=== PATIENT | female | born 1995 | race African-American/Black ===

== ENCOUNTER 2016-09-03 10:42 | Inpatient (IN) | payer MEDICAID ==
[~2016-09-03] VITALS: Ht 149.9 cm; Wt 47.4 kg
[2016-09-03] MEDS ORDERED: HALOPERIDOL LACTATE 5 MG/ML VIAL IM ONE (15:15)
[2016-09-03] MEDS ORDERED: LORazepam 2 MG/ML VIAL IM ONE (15:15)
[2016-09-03] MEDS ORDERED: DiphenhydrAMINE HCL 50 MG/ML VIAL IM ONE (15:15)
[2016-09-03 16:12] LABS: BASOPHILS % (AUTO) 0.3 % (0.0-2.0); EOSINOPHILS % (AUTO) 0.6 % (1.0-6.0); HEMATOCRIT 35.3 % (36-46); HEMOGLOBIN 11.2 g/dL (12.0-16.0); LYMPHOCYTES # (AUTO) 1.8 K/uL (1.0-4.8); LYMPHOCYTES % (AUTO) 17.2 % (22.0-44.0); MEAN CORPUSCULAR HEMOGLOBIN 25.4 pg (26.0-34.0); MEAN CORPUSCULAR HGB CONC 31.7 G/dL (31.0-37.0); MEAN CORPUSCULAR VOLUME 80 fL (80-100); MONOCYTES # (AUTO) 0.8 K/uL (0.1-1.0); MONOCYTES % (AUTO) 7.3 % (2.0-9.0); NEUTROPHILS # (AUTO) 7.6 K/uL (1.8-7.7); NEUTROPHILS % (AUTO) 74.6 % (40.0-70.0); PLATELET COUNT (AUTO) 435 K/uL (150-450); RED CELL DISTRIBUTION WIDTH 17.5 % (11.5-14.5); WHITE BLOOD COUNT (AUTO) 10.2 K/uL (4.5-11.0)
[2016-09-03 16:41] LABS: ANION GAP 14 mmol/L (8-16); CARBON DIOXIDE 24 mmol/L (22-29); CHLORIDE 101 mmol/L (98-107); CREATININE 0.75 mg/dL (0.60-1.30); GLOMERULAR FILTR. RATE CALC > 60 mL/min (>60); SODIUM SERUM 139 mmol/L (136-145); UREA NITROGEN, BLOOD 9 mg/dL (7-18)
[2016-09-03 16:47] LABS: ALANINE AMINOTRANSFERASE 28 U/L (12-78); ALBUMIN 3.9 g/dL (3.4-5.0); ASPARTATE AMINOTRANSFERASE 14 U/L (15-37); BILIRUBIN,TOTAL 0.5 mg/dL (0.1-1.0); TOTAL PROTEIN, SERUM 7.1 g/dL (6.4-8.2)
[2016-09-03 17:07] LABS: RBC MORPHOLOGY COMMENT ABNORMAL RBC MORPH
[2016-09-03 17:48] VITALS: BP 101/69
[2016-09-04 04:28] VITALS: BP 108/70
[2016-09-04 08:11] VITALS: BP 108/69
[2016-09-04 09:06] LABS: CHOL/HDL RATIO 2.8 (3.9-5.7)
[2016-09-04] MEDS ORDERED: ONDANSETRON HCL 4 MG TABLET PO PRN (09:30)
[2016-09-04] MEDS ORDERED: POTASSIUM CHLORIDE 20 MEQ ER TABLET PO ONE (09:30)
[2016-09-04] MEDS ORDERED: PETROLATUM,WHITE 71 GM JELLY TP PRN (09:30)
[2016-09-04] MEDS ORDERED: CloNIDine HCL 0.1 MG TABLET PO PRN (09:30)
[2016-09-04] MEDS ORDERED: MAGNESIUM HYDROXIDE SUSPENSION 30 ML UDCUP PO PRN (09:30)
[2016-09-04] MEDS ORDERED: ACETAMINOPHEN 325 MG TABLET PO PRN (09:30)
[2016-09-04] MEDS ORDERED: ALBUTEROL SULFATE HFA 90 MCG/PUFF 8 GM INHALER IH PRN (09:30)
[2016-09-04] MEDS ORDERED: BACITRACIN 28.4 GM OINTMENT TP PRN (09:30)
[2016-09-04] MEDS ORDERED: MAG HYDROX/AL HYDROX/SIMETH ES 30 ML SUSPENSION UDCUP PO PRN (09:30)
[2016-09-04] MEDS ORDERED: LOPERAMIDE HCL 2 MG CAPSULE PO PRN (09:30)
[2016-09-04] MEDS: RisperiDONE 1 MG TABLET PO SCH ×2 (11:31→16:55)
[2016-09-04 17:25] VITALS: BP 127/78
[2016-09-04] MEDS: LORazepam 2 MG TABLET PO PRN (17:42)
[2016-09-04] MEDS: ZOLPIDEM TARTRATE 10 MG TABLET PO PRN (20:41)
[2016-09-04 21:06] VITALS: BP 100/65
[2016-09-05] MEDS: LORazepam 2 MG TABLET PO PRN ×2 (05:30→14:24)
[2016-09-05 06:26] VITALS: BP 113/73
[2016-09-05] MEDS: HALOPERIDOL 5 MG TABLET PO PRN (08:00)
[2016-09-05 08:34] VITALS: BP 139/97
[2016-09-05 10:41] LABS: GLUCOSE,POINT OF CARE 100 MG/DL (70-110)
[2016-09-05 13:01] VITALS: BP 136/89
[2016-09-05] MEDS: POTASSIUM CHLORIDE 20 MEQ ER TABLET PO ONE ×2 (14:01→14:08)
[2016-09-05 14:02] VITALS: BP 143/100
[2016-09-05 15:09] VITALS: BP 131/95
[2016-09-05] MEDS: ATENOLOL 25 MG TABLET PO SCH (15:58)
[2016-09-05 16:08] VITALS: BP 131/95
[2016-09-05] MEDS: OLANZapine 7.5 MG TABLET PO SCH (20:15)
[2016-09-05] MEDS: ZOLPIDEM TARTRATE 10 MG TABLET PO PRN (20:51)
[2016-09-06 00:02] VITALS: BP 134/90
[2016-09-06] MEDS: LORazepam 2 MG TABLET PO PRN ×2 (00:11→14:37)
[2016-09-06] MEDS: BENZOCAINE/MENTHOL LOZENGE MM PRN (05:19)
[2016-09-06] MEDS: ATENOLOL 25 MG TABLET PO SCH (08:09)
[2016-09-06 08:20] VITALS: BP 119/78
[2016-09-06] MEDS: HALOPERIDOL 5 MG TABLET PO PRN (14:37)
[2016-09-06 16:15] VITALS: BP 110/76
[2016-09-06] MEDS: OLANZapine 7.5 MG TABLET PO SCH (20:07)
[2016-09-06] MEDS: ZOLPIDEM TARTRATE 10 MG TABLET PO PRN (21:57)
[2016-09-07 00:11] VITALS: BP 100/63
[2016-09-07 04:00] VITALS: BP 120/75
[2016-09-07] MEDS: LORazepam 2 MG TABLET PO PRN ×3 (04:41→16:03)
[2016-09-07] MEDS: ATENOLOL 25 MG TABLET PO SCH (08:35)
[2016-09-07 09:08] VITALS: BP 135/85
[2016-09-07] MEDS: HALOPERIDOL 5 MG TABLET PO PRN ×2 (11:01→16:24)
[2016-09-07 16:21] VITALS: BP 124/82
[2016-09-07] MEDS: OLANZapine 7.5 MG TABLET PO SCH (20:03)
[2016-09-07] MEDS: ZOLPIDEM TARTRATE 10 MG TABLET PO PRN (21:04)
[2016-09-08] MEDS: LORazepam 2 MG TABLET PO PRN ×3 (00:07→13:20)
[2016-09-08 01:21] VITALS: BP 124/90
[2016-09-08] MEDS: ATENOLOL 25 MG TABLET PO SCH (08:12)
[2016-09-08] MEDS: HALOPERIDOL 5 MG TABLET PO PRN ×2 (08:13→16:03)
[2016-09-08 16:00] VITALS: BP 125/75
[2016-09-08] MEDS: OLANZapine 7.5 MG TABLET PO SCH (20:08)
[2016-09-08] MEDS: ZOLPIDEM TARTRATE 10 MG TABLET PO PRN (21:05)
[2016-09-09 06:14] VITALS: BP 118/87
[2016-09-09] MEDS: LORazepam 2 MG TABLET PO PRN ×4 (06:23→21:39)
[2016-09-09] MEDS: HALOPERIDOL 5 MG TABLET PO PRN ×3 (08:26→22:31)
[2016-09-09] MEDS: ATENOLOL 25 MG TABLET PO SCH (08:26)
[2016-09-09 09:00] VITALS: BP 117/75
[2016-09-09 16:04] VITALS: BP_SYST 128; BP_SYST 132; BP_DIAS 78; BP_DIAS 84
[2016-09-09] MEDS: OLANZapine 7.5 MG TABLET PO SCH (20:15)
[2016-09-09] MEDS: ZOLPIDEM TARTRATE 10 MG TABLET PO PRN (21:05)
[2016-09-09 21:35] VITALS: BP 110/69
[2016-09-10 03:38] VITALS: BP 117/69
[2016-09-10 08:10] VITALS: BP 110/66
[2016-09-10] MEDS: ATENOLOL 25 MG TABLET PO SCH (08:16)
[2016-09-10] MEDS: HALOPERIDOL 5 MG TABLET PO PRN ×3 (09:43→19:01)
[2016-09-10] MEDS: LORazepam 2 MG TABLET PO PRN ×2 (10:39→16:00)
[2016-09-10 16:14] VITALS: BP 122/82
[2016-09-10] MEDS: OLANZapine 7.5 MG TABLET PO SCH (20:09)
[2016-09-10] MEDS: ZOLPIDEM TARTRATE 10 MG TABLET PO PRN (21:01)
[2016-09-11] MEDS: ATENOLOL 25 MG TABLET PO SCH (08:22)
[2016-09-11 08:34] VITALS: BP 124/77
[2016-09-11] MEDS: HALOPERIDOL 5 MG TABLET PO PRN ×2 (09:03→14:03)
[2016-09-11 10:26] VITALS: BP 118/64
[2016-09-11] MEDS: IBUPROFEN 600 MG TABLET PO PRN (10:26)
[2016-09-11 16:19] VITALS: BP 112/64
[2016-09-11] MEDS: LORazepam 2 MG TABLET PO PRN (16:22)
[2016-09-11] MEDS: OLANZapine 7.5 MG TABLET PO SCH (20:39)
[2016-09-11] MEDS: ZOLPIDEM TARTRATE 10 MG TABLET PO PRN (21:04)
[2016-09-12] MEDS: BENZOCAINE/MENTHOL LOZENGE MM PRN (00:41)
[2016-09-12 01:25] VITALS: BP 119/74
[2016-09-12] MEDS: HALOPERIDOL 5 MG TABLET PO PRN ×4 (01:28→17:17)
[2016-09-12] MEDS: LORazepam 2 MG TABLET PO PRN ×4 (01:28→17:17)
[2016-09-12] MEDS: ATENOLOL 25 MG TABLET PO SCH (08:08)
[2016-09-12 08:54] VITALS: BP 109/80
[2016-09-12 16:30] VITALS: BP 111/68
[2016-09-12] MEDS: OLANZapine 7.5 MG TABLET PO SCH (20:21)
[2016-09-12] MEDS: ZOLPIDEM TARTRATE 10 MG TABLET PO PRN (21:03)
[2016-09-13 00:06] VITALS: BP 119/73
[2016-09-13] MEDS: HALOPERIDOL 5 MG TABLET PO PRN ×3 (07:20→16:41)
[2016-09-13] MEDS: LORazepam 2 MG TABLET PO PRN ×3 (07:20→16:40)
[2016-09-13] MEDS: ATENOLOL 25 MG TABLET PO SCH (08:44)
[2016-09-13 09:53] VITALS: BP 128/77
[2016-09-13 16:00] VITALS: BP 104/75
[2016-09-13] MEDS: OLANZapine 7.5 MG TABLET PO SCH (20:50)
[2016-09-13] MEDS: ZOLPIDEM TARTRATE 10 MG TABLET PO PRN (21:31)
[2016-09-14 04:00] VITALS: BP 108/88
[2016-09-14 06:15] VITALS: BP 115/72
[2016-09-14] MEDS: HALOPERIDOL 5 MG TABLET PO PRN ×4 (06:18→21:23)
[2016-09-14] MEDS: LORazepam 2 MG TABLET PO PRN ×4 (06:18→21:23)
[2016-09-14] MEDS: ATENOLOL 25 MG TABLET PO SCH (09:04)
[2016-09-14 09:35] VITALS: BP 110/65
[2016-09-14 18:06] VITALS: BP 101/75
[2016-09-14] MEDS: IBUPROFEN 600 MG TABLET PO PRN (18:10)
[2016-09-14] MEDS: OLANZapine 7.5 MG TABLET PO SCH (20:52)
[2016-09-14] MEDS: ZOLPIDEM TARTRATE 10 MG TABLET PO PRN (21:18)
[2016-09-15] MEDS: HALOPERIDOL 5 MG TABLET PO PRN ×2 (06:24→12:25)
[2016-09-15] MEDS: LORazepam 2 MG TABLET PO PRN ×3 (06:24→20:11)
[2016-09-15 08:22] VITALS: BP 110/86
[2016-09-15] MEDS: ATENOLOL 25 MG TABLET PO SCH (08:32)
[2016-09-15] MEDS: IBUPROFEN 600 MG TABLET PO PRN (08:56)
[2016-09-15 16:00] VITALS: BP 120/78
[2016-09-15] MEDS: OLANZapine 7.5 MG TABLET PO SCH (20:11)
[2016-09-15] MEDS: ZOLPIDEM TARTRATE 10 MG TABLET PO PRN (21:09)
[2016-09-16 05:43] VITALS: BP 112/80
[2016-09-16] MEDS: LORazepam 2 MG TABLET PO PRN ×4 (05:44→20:15)
[2016-09-16] MEDS: HALOPERIDOL 5 MG TABLET PO PRN ×4 (06:57→20:15)
[2016-09-16] MEDS: ATENOLOL 25 MG TABLET PO SCH (08:21)
[2016-09-16 08:50] VITALS: BP 110/66
[2016-09-16 16:30] VITALS: BP 112/77
[2016-09-16] MEDS: OLANZapine 7.5 MG TABLET PO SCH (20:04)
[2016-09-16] MEDS ORDERED: OLAN7.5T2 PO (20:16)
[2016-09-16] MEDS ORDERED: ATEN25 PO (20:19)
== END 2016-09-16 21:15 | disposition home or self-care (01) | DRG 750 ==
LOC: EDUNIT# 10:42 → EMS 10:46 → B2S 16:28 → B3A 09-07 11:17
PROVIDERS: ADMIT Psychiatry & Neurology Psychiatry; ATTEND Psychiatry & Neurology Psychiatry
PROC: GZHZZZZ Group Psychotherapy (ICD-10-PCS; principal; 2016-09-04)
DX: F25.1 Schizoaffective disorder, depressive type (principal); F22 Delusional disorders; E87.6 Hypokalemia; F17.200 Nicotine dependence, unspecified, uncomplicated; G47.00 Insomnia, unspecified; M54.5 Low back pain; R00.0 Tachycardia, unspecified; R51 Headache; R53.83 Other fatigue; F12.90 Cannabis use, unspecified, uncomplicated; Z90.49 Acquired absence of other specified parts of digestive tract; Z91.011 Allergy to milk products; Z56.0 Unemployment, unspecified; Z71.6 Tobacco abuse counseling; Z71.51 Drug abuse counseling and surveillance of drug abuser; Z72.89 Other problems related to lifestyle; Z71.41 Alcohol abuse counseling and surveillance of alcoholic; Z53.29 Procedure and treatment not carried out because of patient's decision for other reasons; Z79.899 Other long term (current) drug therapy
CPT/HCPCS: 82962; 84132; 84443; 96372; 99285; G0480; J1200; J1630; J2060; J3535

== ENCOUNTER 2016-09-20 04:04 | Inpatient (IN) | payer MEDICAID ==
[~2016-09-20] VITALS: Ht 149.9 cm; Wt 48.5 kg
[~2016-09-20 04:04] MED LIST: ATEN25 PO; OLAN7.5T2 PO
[2016-09-20] MEDS ORDERED: LORazepam 2 MG TABLET PO ONE (05:15)
[2016-09-20] MEDS ORDERED: DiphenhydrAMINE HCL 25 MG CAPSULE PO ONE (05:15)
[2016-09-20] MEDS ORDERED: HALOPERIDOL 5 MG TABLET PO ONE (05:15)
[2016-09-20 05:17] LABS: BASOPHILS % (AUTO) 0.9 % (0.0-2.0); EOSINOPHILS # (AUTO) 0.04 K/uL (0.00-0.70); EOSINOPHILS % (AUTO) 0.33 % (1.0-6.0); HEMATOCRIT 35.8 % (36-46); HEMOGLOBIN 11.5 g/dL (12.0-16.0); LYMPHOCYTES # (AUTO) 1.3 K/uL (1.0-4.8); LYMPHOCYTES % (AUTO) 11.9 % (22.0-44.0); MEAN CORPUSCULAR HEMOGLOBIN 25.9 pg (26.0-34.0); MEAN CORPUSCULAR HGB CONC 32.2 G/dL (31.0-37.0); MEAN CORPUSCULAR VOLUME 80 fL (80-100); MONOCYTES # (AUTO) 0.7 K/uL (0.1-1.0); MONOCYTES % (AUTO) 6.6 % (2.0-9.0); NEUTROPHILS # (AUTO) 8.9 K/uL (1.8-7.7); NEUTROPHILS % (AUTO) 80.3 % (40.0-70.0); PLATELET COUNT (AUTO) 442 K/uL (150-450); RED BLOOD CELL COUNT(AUTO) 4.45 MIL/uL (4.00-5.20)
[2016-09-20 05:24] LABS: ANION GAP 10 mmol/L (8-16); CALCIUM, TOTAL 8.8 mg/dL (8.8-10.5); CARBON DIOXIDE 28 mmol/L (22-29); CHLORIDE 100 mmol/L (98-107); CREATININE 0.73 mg/dL (0.60-1.30); GLOMERULAR FILTR. RATE CALC > 60 mL/min (>60); POTASSIUM 3.6 mmol/L (3.5-5.1); SODIUM SERUM 138 mmol/L (136-145); UREA NITROGEN, BLOOD 10 mg/dL (7-18)
[2016-09-20 05:30] LABS: ALANINE AMINOTRANSFERASE 42 U/L (12-78); ASPARTATE AMINOTRANSFERASE 26 U/L (15-37); BILIRUBIN,TOTAL 0.3 mg/dL (0.1-1.0); TOTAL PROTEIN, SERUM 7.6 g/dL (6.4-8.2)
[2016-09-20] MEDS ORDERED: ACETAMINOPHEN 325 MG TABLET PO PRN (08:00)
[2016-09-20] MEDS ORDERED: MAG HYDROX/AL HYDROX/SIMETH ES 30 ML SUSPENSION UDCUP PO PRN (08:00)
[2016-09-20] MEDS ORDERED: CloNIDine HCL 0.1 MG TABLET PO PRN (08:00)
[2016-09-20] MEDS ORDERED: BACITRACIN 28.4 GM OINTMENT TP PRN (08:00)
[2016-09-20] MEDS ORDERED: MAGNESIUM HYDROXIDE SUSPENSION 30 ML UDCUP PO PRN (08:00)
[2016-09-20] MEDS ORDERED: ALBUTEROL SULFATE HFA 90 MCG/PUFF 8 GM INHALER IH PRN (08:00)
[2016-09-20] MEDS ORDERED: LOPERAMIDE HCL 2 MG CAPSULE PO PRN (08:00)
[2016-09-20] MEDS ORDERED: PETROLATUM,WHITE 71 GM JELLY TP PRN (08:00)
[2016-09-20] MEDS ORDERED: ONDANSETRON HCL 4 MG TABLET PO PRN (08:00)
[2016-09-20] MEDS ORDERED: BENZOCAINE/MENTHOL LOZENGE MM PRN (08:00)
[2016-09-20 08:05] VITALS: BP 103/57
[2016-09-20] MEDS: HALOPERIDOL 5 MG TABLET PO PRN (13:41)
[2016-09-20] MEDS: LORazepam 2 MG TABLET PO PRN (13:43)
[2016-09-21] MEDS: ZOLPIDEM TARTRATE 10 MG TABLET PO PRN (00:45)
[2016-09-21 00:46] VITALS: BP 123/90
[2016-09-21] MEDS: LORazepam 2 MG TABLET PO PRN ×3 (08:12→17:29)
[2016-09-21] MEDS: HALOPERIDOL 5 MG TABLET PO PRN ×3 (08:49→17:29)
[2016-09-21 09:07] VITALS: BP 124/87
[2016-09-21 16:00] VITALS: BP 125/85
[2016-09-21] MEDS: OLANZapine 7.5 MG TABLET PO SCH (20:54)
[2016-09-22] MEDS: LORazepam 2 MG TABLET PO PRN ×3 (04:59→14:21)
[2016-09-22] MEDS: HALOPERIDOL 5 MG TABLET PO PRN ×3 (04:59→14:21)
[2016-09-22 05:00] VITALS: BP 128/96
[2016-09-22 08:23] VITALS: BP 115/73
[2016-09-22] MEDS: IBUPROFEN 600 MG TABLET PO PRN (16:10)
[2016-09-22 16:49] VITALS: BP 122/78
[2016-09-22] MEDS: OLANZapine 7.5 MG TABLET PO SCH (21:02)
[2016-09-23 05:00] VITALS: BP 121/75
[2016-09-23 05:39] VITALS: BP 130/98
[2016-09-23] MEDS: LORazepam 2 MG TABLET PO PRN ×3 (05:47→17:30)
[2016-09-23] MEDS: HALOPERIDOL 5 MG TABLET PO PRN ×3 (05:47→17:29)
[2016-09-23 08:27] VITALS: BP 135/77
[2016-09-23] MEDS: IBUPROFEN 600 MG TABLET PO PRN ×2 (09:32→20:01)
[2016-09-23 17:29] VITALS: BP 118/84
[2016-09-23] MEDS: OLANZapine 7.5 MG TABLET PO SCH (21:11)
[2016-09-24 04:24] VITALS: BP 137/85
[2016-09-24] MEDS: LORazepam 2 MG TABLET PO PRN ×3 (04:28→16:15)
[2016-09-24] MEDS: IBUPROFEN 600 MG TABLET PO PRN (04:50)
[2016-09-24] MEDS: HALOPERIDOL 5 MG TABLET PO PRN ×3 (05:35→16:15)
[2016-09-24 08:37] VITALS: BP 122/79
[2016-09-24 16:00] VITALS: BP 130/85
[2016-09-24] MEDS: OLANZapine 7.5 MG TABLET PO SCH (20:40)
[2016-09-24] MEDS: ZOLPIDEM TARTRATE 10 MG TABLET PO PRN (20:41)
[2016-09-25 04:54] VITALS: BP 124/79
[2016-09-25] MEDS: LORazepam 2 MG TABLET PO PRN ×2 (04:55→08:30)
[2016-09-25] MEDS: HALOPERIDOL 5 MG TABLET PO PRN ×2 (04:55→08:30)
[2016-09-25] MEDS: IBUPROFEN 600 MG TABLET PO PRN (08:30)
[2016-09-25 08:51] VITALS: BP 124/76
[2016-09-25] MEDS ORDERED: OLAN7.5T2 PO (12:07)
== END 2016-09-25 13:53 | disposition home or self-care (01) | DRG 750 ==
LOC: EDUNIT# 04:04 → EMS 04:06 → B3A 06:37
PROVIDERS: ADMIT Psychiatry & Neurology Psychiatry; ATTEND Psychiatry & Neurology Psychiatry
DX: F20.0 Paranoid schizophrenia (principal); R45.851 Suicidal ideations; F17.200 Nicotine dependence, unspecified, uncomplicated; G47.00 Insomnia, unspecified; F12.90 Cannabis use, unspecified, uncomplicated; Z53.29 Procedure and treatment not carried out because of patient's decision for other reasons; J45.909 Unspecified asthma, uncomplicated; Z90.49 Acquired absence of other specified parts of digestive tract; Z71.6 Tobacco abuse counseling; Z91.011 Allergy to milk products; Z71.41 Alcohol abuse counseling and surveillance of alcoholic; Z71.51 Drug abuse counseling and surveillance of drug abuser; Z56.0 Unemployment, unspecified; Z72.89 Other problems related to lifestyle
CPT/HCPCS: 87081; 99285; G0480; J3535

== ENCOUNTER 2016-09-30 23:21 | Inpatient (IN) | payer MEDICAID ==
[~2016-09-30] VITALS: Ht 149.9 cm; Wt 51.0 kg
[~2016-09-30 23:21] MED LIST changes: -ATEN25 PO
[2016-10-01 03:54] LABS: BASOPHILS % (AUTO) 0.5 % (0.0-2.0); EOSINOPHILS % (AUTO) 2.9 % (1.0-6.0); HEMOGLOBIN 9.8 g/dL (12.0-16.0); LYMPHOCYTES # (AUTO) 2.3 K/uL (1.0-4.8); LYMPHOCYTES % (AUTO) 27.7 % (22.0-44.0); MEAN CORPUSCULAR HEMOGLOBIN 26.4 pg (26.0-34.0); MEAN CORPUSCULAR HGB CONC 32.9 G/dL (31.0-37.0); MEAN CORPUSCULAR VOLUME 80 fL (80-100); MONOCYTES # (AUTO) 0.6 K/uL (0.1-1.0); MONOCYTES % (AUTO) 6.8 % (2.0-9.0); NEUTROPHILS # (AUTO) 5.1 K/uL (1.8-7.7); NEUTROPHILS % (AUTO) 62.1 % (40.0-70.0); PLATELET COUNT (AUTO) 373 K/uL (150-450); RED BLOOD CELL COUNT(AUTO) 3.73 MIL/uL (4.00-5.20); RED CELL DISTRIBUTION WIDTH 18.3 % (11.5-14.5); WHITE BLOOD COUNT (AUTO) 8.2 K/uL (4.5-11.0)
[2016-10-01 04:11] LABS: ALANINE AMINOTRANSFERASE 41 U/L (12-78); ALBUMIN 3.3 g/dL (3.4-5.0); ANION GAP 7 mmol/L (8-16); ASPARTATE AMINOTRANSFERASE 15 U/L (15-37); BILIRUBIN,TOTAL 0.2 mg/dL (0.1-1.0); CALCIUM, TOTAL 8.6 mg/dL (8.8-10.5); CARBON DIOXIDE 28 mmol/L (22-29); CHLORIDE 105 mmol/L (98-107); CHOL/HDL RATIO 3.6 (3.9-5.7); CREATININE 0.65 mg/dL (0.60-1.30); GLOMERULAR FILTR. RATE CALC > 60 mL/min (>60); POTASSIUM 3.7 mmol/L (3.5-5.1); SODIUM SERUM 140 mmol/L (136-145); TOTAL PROTEIN, SERUM 6.6 g/dL (6.4-8.2)
[2016-10-01 04:17] LABS: UREA NITROGEN, BLOOD 12 mg/dL (7-18)
[2016-10-01 06:52] VITALS: BP 102/53
[2016-10-01] MEDS ORDERED: LOPERAMIDE HCL 2 MG CAPSULE PO PRN (09:00)
[2016-10-01] MEDS ORDERED: ALBUTEROL SULFATE HFA 90 MCG/PUFF 8 GM INHALER IH PRN ×2 (09:00→21:30)
[2016-10-01] MEDS ORDERED: MAG HYDROX/AL HYDROX/SIMETH ES 30 ML SUSPENSION UDCUP PO PRN (09:00)
[2016-10-01] MEDS ORDERED: PETROLATUM,WHITE 71 GM JELLY TP PRN (09:00)
[2016-10-01] MEDS ORDERED: CloNIDine HCL 0.1 MG TABLET PO PRN (09:00)
[2016-10-01] MEDS ORDERED: IBUPROFEN 600 MG TABLET PO PRN (09:00)
[2016-10-01] MEDS ORDERED: ONDANSETRON HCL 4 MG TABLET PO PRN (09:00)
[2016-10-01] MEDS ORDERED: BENZOCAINE/MENTHOL LOZENGE [8 LOZENGES/PACKET] MM PRN (09:00)
[2016-10-01] MEDS ORDERED: MAGNESIUM HYDROXIDE SUSPENSION 30 ML UDCUP PO PRN (09:00)
[2016-10-01] MEDS ORDERED: BACITRACIN 28.4 GM OINTMENT TP PRN (09:00)
[2016-10-01 16:16] VITALS: BP 115/68
[2016-10-01] MEDS: HALOPERIDOL 5 MG TABLET PO PRN (16:27)
[2016-10-01] MEDS: LORazepam 2 MG TABLET PO PRN (16:27)
[2016-10-01] MEDS ORDERED: PNEUMOCOCCAL VACCINE POLYVALENT 0.5 ML VIAL [PPSV23] IM ONE (17:15)
[2016-10-02 02:26] VITALS: BP 117/86
[2016-10-02] MEDS: ZOLPIDEM TARTRATE 10 MG TABLET PO PRN (02:29)
[2016-10-02] MEDS: HALOPERIDOL 5 MG TABLET PO PRN ×3 (08:18→19:14)
[2016-10-02] MEDS: LORazepam 2 MG TABLET PO PRN ×3 (08:18→19:14)
[2016-10-02 09:33] VITALS: BP 120/74
[2016-10-02 16:25] VITALS: BP 115/75
[2016-10-02] MEDS: OLANZapine 7.5 MG TABLET PO SCH (20:24)
[2016-10-03 02:04] VITALS: BP_SYST 105; BP_SYST 123; BP_DIAS 73; BP_DIAS 74
[2016-10-03] MEDS: LORazepam 2 MG TABLET PO PRN ×2 (02:18→06:38)
[2016-10-03 06:34] VITALS: BP 120/80
[2016-10-03 08:46] VITALS: BP 122/60
[2016-10-03] MEDS: HALOPERIDOL 5 MG TABLET PO PRN ×2 (08:47→17:20)
[2016-10-03 16:34] VITALS: BP 119/86
[2016-10-03] MEDS: OLANZapine 7.5 MG TABLET PO SCH (20:05)
[2016-10-03] MEDS: ZOLPIDEM TARTRATE 10 MG TABLET PO PRN (21:21)
[2016-10-04 05:45] VITALS: BP 125/81
[2016-10-04] MEDS: HALOPERIDOL 5 MG TABLET PO PRN ×2 (05:51→10:42)
[2016-10-04] MEDS: ATENOLOL 25 MG TABLET PO SCH (08:38)
[2016-10-04 09:00] VITALS: BP 117/77
[2016-10-04 16:30] VITALS: BP 120/68
[2016-10-04] MEDS: OLANZapine 7.5 MG TABLET PO SCH (20:03)
[2016-10-05 05:45] VITALS: BP 125/87
[2016-10-05] MEDS: HALOPERIDOL 5 MG TABLET PO PRN ×2 (08:46→12:48)
[2016-10-05] MEDS: ATENOLOL 25 MG TABLET PO SCH (08:46)
[2016-10-05 09:36] VITALS: BP 121/68
[2016-10-05] MEDS: ACETAMINOPHEN 325 MG TABLET PO PRN (10:34)
[2016-10-05 16:18] VITALS: BP 109/61
[2016-10-05] MEDS: OLANZapine 7.5 MG TABLET PO SCH (20:23)
[2016-10-06 00:14] VITALS: BP 104/61
[2016-10-06] MEDS: ATENOLOL 25 MG TABLET PO SCH (08:24)
[2016-10-06] MEDS: HALOPERIDOL 5 MG TABLET PO PRN ×2 (08:25→15:51)
[2016-10-06 08:56] VITALS: BP 122/68
[2016-10-06] MEDS: FLUoxetine HCL 20 MG CAPSULE PO SCH (12:36)
[2016-10-06 15:51] VITALS: BP 118/70
[2016-10-06] MEDS: ACETAMINOPHEN 325 MG TABLET PO PRN (15:51)
[2016-10-06 16:20] VITALS: BP 119/71
[2016-10-06] MEDS ORDERED: OLANZapine 10 MG TABLET PO SCH (21:00)
[2016-10-07 00:15] VITALS: BP 116/83
[2016-10-07] MEDS: HALOPERIDOL 5 MG TABLET PO PRN (08:33)
[2016-10-07] MEDS: FLUoxetine HCL 20 MG CAPSULE PO SCH (08:33)
[2016-10-07] MEDS: ATENOLOL 25 MG TABLET PO SCH (08:33)
[2016-10-07 08:57] VITALS: BP 126/76
[2016-10-07] MEDS ORDERED: FLUO-191 PO (13:51)
[2016-10-07] MEDS ORDERED: ATEN25 PO (13:51)
== END 2016-10-07 14:40 | disposition home or self-care (01) | DRG 750 ==
LOC: EMS 23:22 → UNDOADMIN 10-01 06:00 → AHU 10-01 06:00 → EMS 10-01 06:37 → B2S 10-01 15:55
PROVIDERS: ADMIT Psychiatry & Neurology Psychiatry; ATTEND Psychiatry & Neurology Psychiatry
DX: F20.0 Paranoid schizophrenia (principal); D64.9 Anemia, unspecified; J45.909 Unspecified asthma, uncomplicated; F12.90 Cannabis use, unspecified, uncomplicated; K59.00 Constipation, unspecified; G47.00 Insomnia, unspecified; R00.0 Tachycardia, unspecified; F17.200 Nicotine dependence, unspecified, uncomplicated; Z90.49 Acquired absence of other specified parts of digestive tract; Z71.51 Drug abuse counseling and surveillance of drug abuser; Z28.21 Immunization not carried out because of patient refusal; Z71.6 Tobacco abuse counseling; Z88.8 Allergy status to other drugs, medicaments and biological substances
CPT/HCPCS: 87081; 99285; G0480; J3535; Q0162

== ENCOUNTER 2018-08-02 21:28 | Inpatient (IN) | payer MEDICAID ==
[~2018-08-02] VITALS: Ht 149.9 cm; Wt 62.3 kg
[~2018-08-02 21:28] MED LIST changes: +ATEN25TA PO; +FLUO-191 PO
[2018-08-02 21:55] LABS: BASOPHILS % (AUTO) 0.7 % (0.0-2.0); EOSINOPHILS % (AUTO) 0.8 % (1.0-6.0); HEMATOCRIT 38.5 % (36-46); HEMOGLOBIN 12.7 g/dL (12.0-16.0); LYMPHOCYTES # (AUTO) 1.4 K/uL (1.0-4.8); LYMPHOCYTES % (AUTO) 11.2 % (22.0-44.0); MEAN CORPUSCULAR VOLUME 82 fL (80-100); MONOCYTES # (AUTO) 0.6 K/uL (0.1-1.0); MONOCYTES % (AUTO) 4.6 % (2.0-9.0); NEUTROPHILS # (AUTO) 10.2 K/uL (1.8-7.7); NEUTROPHILS % (AUTO) 82.7 % (40.0-70.0); PLATELET COUNT (AUTO) 370 K/uL (150-450); RED CELL DISTRIBUTION WIDTH 18.6 % (11.5-14.5)
[2018-08-02 22:05] LABS: ANION GAP 14 mmol/L (8-16); CALCIUM, TOTAL 8.8 mg/dL (8.8-10.5); CARBON DIOXIDE 25 mmol/L (22-29); CHLORIDE 99 mmol/L (98-107); CREATININE 0.88 mg/dL (0.60-1.30); GLOMERULAR FILTR. RATE CALC > 60 mL/min (>60); GLUCOSE,RANDOM 143 mg/dL (70-110); POTASSIUM 3.8 mmol/L (3.5-5.1); SODIUM SERUM 138 mmol/L (136-145); UREA NITROGEN, BLOOD 12 mg/dL (7-18)
[2018-08-02 22:11] LABS: ALANINE AMINOTRANSFERASE 19 U/L (12-78); ALBUMIN 3.6 g/dL (3.4-5.0); ALKALINE PHOSPHATASE 63 U/L (46-116); ASPARTATE AMINOTRANSFERASE 15 U/L (15-37); BILIRUBIN,TOTAL 0.1 mg/dL (0.1-1.0); TOTAL PROTEIN, SERUM 8.1 g/dL (6.4-8.2)
[2018-08-02 23:08] LABS: APPEARANCE,URINE CLOUDY (CLEAR); BILIRUBIN,URINE NEGATIVE (NEGATIVE); GLUCOSE, URINE (UA) NEGATIVE (NEGATIVE); KETONES,URINE NEGATIVE (NEGATIVE); LEUKOCYTE ESTERASE ,URINE NEGATIVE (NEGATIVE); NITRATE,URINE NEGATIVE (NEGATIVE); OCCULT BLOOD,URINE LARGE (NEGATIVE); PH,URINE 6.5 (5.0-8.0); PROTEIN,URINE NEGATIVE (NEGATIVE); UROBILINOGEN,URINE 0.2 mg/dL (<=1.0)
[2018-08-02 23:13] LABS: AMPHET/METH SCREEN,URINE NEGATIVE (NEGATIVE); BARBITURATE SCREEN, URINE NEGATIVE (NEGATIVE); BENZODIAZEPINES SCREEN,URINE NEGATIVE (NEGATIVE); CANNABINOID SCREEN,URINE POSITIVE (NEGATIVE); COCAINE SCREEN,URINE NEGATIVE (NEGATIVE); METHADONE SCREEN, URINE NEGATIVE (NEGATIVE); OPIATE SCREEN,URINE NEGATIVE (NEGATIVE); PHENCYCLIDINE SCREEN,URINE NEGATIVE (NEGATIVE)
[2018-08-02 23:27] LABS: HCG,QUANTITATIVE < 1 mIU/mL (0-6)
[2018-08-02 23:44] LABS: BACTERIA,URINE Rare /HPF (None Seen); SQUAMOUS EPITHELIAL CELL,UR Moderate /LPF (None Seen); WBC,URINE 0-2 /HPF (0-5)
[2018-08-02] MEDS ORDERED: QUEtiapine FUMARATE 100 MG TABLET PO PRN (23:45)
[2018-08-03 01:00] VITALS: BP 138/78
[2018-08-03] MEDS: ZOLPIDEM TARTRATE 10 MG TABLET PO PRN ×2 (01:07→20:58)
[2018-08-03] MEDS: LORazepam 2 MG TABLET PO PRN ×3 (01:07→17:38)
[2018-08-03] MEDS ORDERED: PNEUMOCOCCAL VACCINE POLYVALENT 0.5 ML VIAL [PPSV23] IM ONE (01:30)
[2018-08-03 08:20] VITALS: BP 120/84
[2018-08-03 09:10] LABS: CHOL/HDL RATIO 4.8 (3.9-5.7)
[2018-08-03] MEDS ORDERED: MAGNESIUM HYDROXIDE SUSPENSION 30 ML UDCUP PO PRN (12:30)
[2018-08-03] MEDS ORDERED: TUBERCULIN, PURIFIED PROTEIN DERIVATIVE 5 TU/0.1 ML SYRINGE ID ONE (12:30)
[2018-08-03] MEDS ORDERED: LOPERAMIDE HCL 2 MG CAPSULE PO PRN (12:30)
[2018-08-03] MEDS ORDERED: GuaiFENesin/D-METHORPHAN [SUGAR-FREE] 200-20MG/10 ML SYRUP UDCUP PO PRN (12:30)
[2018-08-03] MEDS ORDERED: ACETAMINOPHEN 325 MG TABLET PO PRN (12:30)
[2018-08-03] MEDS ORDERED: MAG HYDROX/AL HYDROX/SIMETH ES 30 ML SUSPENSION UDCUP PO PRN (12:30)
[2018-08-03] MEDS ORDERED: PROMETHAZINE HCL 25 MG TABLET PO PRN (12:30)
[2018-08-03] MEDS: THIAMINE HCL 100 MG TABLET PO SCH (16:11)
[2018-08-03] MEDS: HydrOXYzine PAMOATE 50 MG CAPSULE PO PRN (16:11)
[2018-08-03] MEDS ORDERED: ARIPiprazole 2 MG TABLET PO PRN (16:15)
[2018-08-03] MEDS ORDERED: ARIPiprazole ER SUSPENSION 400 MG PRE-FILLED DUAL CHAMBER SYRINGE IM ONE (16:15)
[2018-08-03 16:21] VITALS: BP 116/72
[2018-08-03] MEDS: OLANZapine 5 MG RAPDIS TABLET PO PRN (17:38)
[2018-08-03] MEDS: DIVALPROEX SODIUM 500 MG ER TABLET PO SCH (20:09)
[2018-08-03] MEDS ORDERED: OLANZapine 5 MG RAPDIS TABLET PO SCH (21:00)
[2018-08-04 00:48] VITALS: BP 127/82
[2018-08-04] MEDS: LORazepam 2 MG TABLET PO PRN ×3 (04:47→18:21)
[2018-08-04] MEDS: FOLIC ACID 1 MG TABLET PO SCH (08:33)
[2018-08-04] MEDS: MULTIVITAMINS WITH MINERALS, THERAPEUTIC TABLET PO SCH (08:33)
[2018-08-04] MEDS: THIAMINE HCL 100 MG TABLET PO SCH ×2 (08:33→17:27)
[2018-08-04] MEDS: FLUoxetine HCL 20 MG CAPSULE PO SCH (08:33)
[2018-08-04] MEDS: NALTREXONE HCL 50 MG TABLET PO SCH (08:33)
[2018-08-04] MEDS: LEVOFLOXACIN 500 MG TABLET PO SCH (08:35)
[2018-08-04 08:53] VITALS: BP 120/95
[2018-08-04] MEDS ORDERED: ARIPiprazole 10 MG TABLET PO SCH (09:00)
[2018-08-04] MEDS: OLANZapine 5 MG RAPDIS TABLET PO PRN (13:19)
[2018-08-04 17:18] VITALS: BP 136/71
[2018-08-04] MEDS: ZOLPIDEM TARTRATE 10 MG TABLET PO PRN (20:53)
[2018-08-04] MEDS: DIVALPROEX SODIUM 500 MG ER TABLET PO SCH (21:38)
[2018-08-05 01:05] VITALS: BP 114/68
[2018-08-05 02:00] VITALS: BP 112/89
[2018-08-05] MEDS: LORazepam 2 MG TABLET PO PRN ×3 (02:10→12:19)
[2018-08-05 08:00] VITALS: BP 131/80
[2018-08-05] MEDS: FOLIC ACID 1 MG TABLET PO SCH (08:14)
[2018-08-05] MEDS: THIAMINE HCL 100 MG TABLET PO SCH ×2 (08:14→16:41)
[2018-08-05] MEDS: FLUoxetine HCL 20 MG CAPSULE PO SCH (08:14)
[2018-08-05] MEDS: MULTIVITAMINS WITH MINERALS, THERAPEUTIC TABLET PO SCH (08:14)
[2018-08-05] MEDS: LEVOFLOXACIN 500 MG TABLET PO SCH (08:14)
[2018-08-05] MEDS: NALTREXONE HCL 50 MG TABLET PO SCH (08:14)
[2018-08-05] MEDS ORDERED: ARIPiprazole 15 MG TABLET PO SCH (09:00)
[2018-08-05] MEDS: ARIPiprazole 2 MG TABLET PO PRN (14:26)
[2018-08-05 16:06] VITALS: BP 147/95
[2018-08-05] MEDS: DIVALPROEX SODIUM 250 MG ER TABLET PO SCH ×2 (16:42→20:01)
[2018-08-05] MEDS: TraZODone HCL 50 MG TABLET PO SCH (20:01)
[2018-08-05] MEDS: OLANZapine 5 MG RAPDIS TABLET PO PRN (20:05)
[2018-08-05] MEDS: HydrOXYzine PAMOATE 50 MG CAPSULE PO PRN (21:10)
[2018-08-06 00:24] VITALS: BP 110/61
[2018-08-06] MEDS: MULTIVITAMINS WITH MINERALS, THERAPEUTIC TABLET PO SCH (08:40)
[2018-08-06] MEDS: FOLIC ACID 1 MG TABLET PO SCH (08:40)
[2018-08-06] MEDS: THIAMINE HCL 100 MG TABLET PO SCH ×2 (08:41→16:57)
[2018-08-06] MEDS: DIVALPROEX SODIUM 250 MG ER TABLET PO SCH ×4 (08:41→20:52)
[2018-08-06] MEDS: NALTREXONE HCL 50 MG TABLET PO SCH (08:42)
[2018-08-06] MEDS: ARIPiprazole 10 MG TABLET PO SCH (08:45)
[2018-08-06 08:51] VITALS: BP 122/75
[2018-08-06] MEDS: LEVOFLOXACIN 500 MG TABLET PO SCH (09:59)
[2018-08-06] MEDS: NICOTINE 7 MG/24 HOUR PATCH TD SCH (10:57)
[2018-08-06] MEDS: LORazepam 2 MG TABLET PO PRN ×2 (12:45→16:59)
[2018-08-06 16:09] VITALS: BP 113/69
[2018-08-06] MEDS: TraZODone HCL 50 MG TABLET PO SCH (20:52)
[2018-08-07 00:50] VITALS: BP 110/68
[2018-08-07 08:00] VITALS: BP 139/79
[2018-08-07] MEDS: FOLIC ACID 1 MG TABLET PO SCH (08:25)
[2018-08-07] MEDS: DIVALPROEX SODIUM 250 MG ER TABLET PO SCH ×4 (08:25→20:25)
[2018-08-07] MEDS: MULTIVITAMINS WITH MINERALS, THERAPEUTIC TABLET PO SCH (08:25)
[2018-08-07] MEDS: THIAMINE HCL 100 MG TABLET PO SCH ×2 (08:25→16:11)
[2018-08-07] MEDS: ARIPiprazole 10 MG TABLET PO SCH (08:25)
[2018-08-07] MEDS: NICOTINE 7 MG/24 HOUR PATCH TD SCH (08:26)
[2018-08-07] MEDS: NALTREXONE HCL 50 MG TABLET PO SCH (08:26)
[2018-08-07] MEDS: ARIPiprazole 2 MG TABLET PO PRN (10:28)
[2018-08-07] MEDS: LORazepam 2 MG TABLET PO PRN (15:57)
[2018-08-07 16:14] VITALS: BP 111/82
[2018-08-07] MEDS: TraZODone HCL 50 MG TABLET PO SCH (20:25)
[2018-08-08 00:40] VITALS: BP 106/72
[2018-08-08] MEDS: FOLIC ACID 1 MG TABLET PO SCH (08:17)
[2018-08-08] MEDS: NALTREXONE HCL 50 MG TABLET PO SCH (08:17)
[2018-08-08] MEDS: NICOTINE 7 MG/24 HOUR PATCH TD SCH (08:17)
[2018-08-08] MEDS: LORazepam 2 MG TABLET PO PRN ×2 (08:17→16:06)
[2018-08-08] MEDS: ARIPiprazole 10 MG TABLET PO SCH (08:17)
[2018-08-08] MEDS: THIAMINE HCL 100 MG TABLET PO SCH ×2 (08:17→16:05)
[2018-08-08] MEDS: DIVALPROEX SODIUM 250 MG ER TABLET PO SCH ×4 (08:17→20:13)
[2018-08-08] MEDS: MULTIVITAMINS WITH MINERALS, THERAPEUTIC TABLET PO SCH (08:17)
[2018-08-08 08:30] VITALS: BP 119/80
[2018-08-08] MEDS: ARIPiprazole 2 MG TABLET PO PRN ×2 (10:21→20:49)
[2018-08-08 16:04] VITALS: BP 116/78
[2018-08-08] MEDS: TraZODone HCL 50 MG TABLET PO SCH (20:11)
[2018-08-09 00:08] VITALS: BP 112/72
[2018-08-09] MEDS ORDERED: ARIP10TA8 PO (07:59)
[2018-08-09] MEDS ORDERED: THIA100T67 PO (08:02)
[2018-08-09] MEDS ORDERED: DIVA250T45 PO (08:02)
[2018-08-09] MEDS ORDERED: NALT50TA6 PO (08:03)
[2018-08-09] MEDS ORDERED: TRAZ-219 PO (08:03)
[2018-08-09] MEDS: MULTIVITAMINS WITH MINERALS, THERAPEUTIC TABLET PO SCH (08:18)
[2018-08-09] MEDS: THIAMINE HCL 100 MG TABLET PO SCH (08:18)
[2018-08-09] MEDS: NALTREXONE HCL 50 MG TABLET PO SCH (08:18)
[2018-08-09] MEDS: DIVALPROEX SODIUM 250 MG ER TABLET PO SCH (08:18)
[2018-08-09] MEDS: ARIPiprazole 10 MG TABLET PO SCH (08:18)
[2018-08-09] MEDS: FOLIC ACID 1 MG TABLET PO SCH (08:18)
[2018-08-09] MEDS: NICOTINE 7 MG/24 HOUR PATCH TD SCH (08:20)
[2018-08-31] MEDS ORDERED: ARIPiprazole ER SUSPENSION 400 MG PRE-FILLED DUAL CHAMBER SYRINGE IM SCH (09:00)
== END 2018-08-09 11:20 | disposition home or self-care (01) | DRG 753 ==
LOC: EMS 21:29 → B3A 23:08 → B2S 08-04 17:02
PROVIDERS: ADMIT Psychiatry & Neurology Psychiatry; ATTEND Psychiatry & Neurology Psychiatry
DX: F31.5 Bipolar disorder, current episode depressed, severe, with psychotic features (principal); R45.851 Suicidal ideations; Z91.19 Patient's noncompliance with other medical treatment and regimen; D64.9 Anemia, unspecified; D72.829 Elevated white blood cell count, unspecified; F12.90 Cannabis use, unspecified, uncomplicated; F17.210 Nicotine dependence, cigarettes, uncomplicated; G47.00 Insomnia, unspecified; J45.909 Unspecified asthma, uncomplicated; Z65.3 Problems related to other legal circumstances; Z68.28 Body mass index [BMI] 28.0-28.9, adult; Z82.49 Family history of ischemic heart disease and other diseases of the circulatory system; Z83.3 Family history of diabetes mellitus; Z84.82 Family history of sudden infant death syndrome; Z90.49 Acquired absence of other specified parts of digestive tract; Z98.891 History of uterine scar from previous surgery; Z79.899 Other long term (current) drug therapy
CPT/HCPCS: G0480; J0401

== ENCOUNTER 2019-01-17 17:25 | Inpatient (IN) | payer MEDICAID ==
[~2019-01-17] VITALS: Ht 149.9 cm; Wt 59.1 kg
[~2019-01-17 17:25] MED LIST changes: +ARIP10TA8 PO; -ATEN25TA PO; +DIVA250T45 PO; -FLUO-191 PO; +NALT50TA6 PO; -OLAN7.5T2 PO; +THIA100T67 PO; +TRAZ-252 PO
[2019-01-17] MEDS ORDERED: HALOPERIDOL LACTATE 5 MG/ML VIAL IM ONE (20:45)
[2019-01-17] MEDS ORDERED: DiphenhydrAMINE HCL 50 MG/ML VIAL IM ONE (20:45)
[2019-01-17] MEDS ORDERED: LORazepam 2 MG/ML VIAL IM ONE (20:45)
[2019-01-17 21:59] LABS: BASOPHILS % (AUTO) 0.5 % (0.0-2.0); EOSINOPHILS % (AUTO) 0.3 % (1.0-6.0); HEMATOCRIT 40.3 % (36-46); HEMOGLOBIN 13.3 g/dL (12.0-16.0); LYMPHOCYTES # (AUTO) 1.7 K/uL (1.0-4.8); LYMPHOCYTES % (AUTO) 15.9 % (22.0-44.0); MEAN CORPUSCULAR HEMOGLOBIN 28.3 pg (26.0-34.0); MEAN CORPUSCULAR HGB CONC 33.1 G/dL (31.0-37.0); MEAN CORPUSCULAR VOLUME 86 fL (80-100); MONOCYTES # (AUTO) 0.9 K/uL (0.1-1.0); MONOCYTES % (AUTO) 8.4 % (2.0-9.0); NEUTROPHILS # (AUTO) 8.1 K/uL (1.8-7.7); NEUTROPHILS % (AUTO) 74.9 % (40.0-70.0); PLATELET COUNT (AUTO) 378 K/uL (150-450); RED BLOOD CELL COUNT(AUTO) 4.72 MIL/uL (4.00-5.20); RED CELL DISTRIBUTION WIDTH 15.2 % (11.5-14.5)
[2019-01-17 22:08] LABS: ANION GAP 9 mmol/L (8-16); CALCIUM, TOTAL 9.9 mg/dL (8.8-10.5); CARBON DIOXIDE 28 mmol/L (22-29); CHLORIDE 102 mmol/L (98-107); CREATININE 1.16 mg/dL (0.60-1.30); GLOMERULAR FILTR. RATE CALC > 60 mL/min (>60); GLUCOSE,RANDOM 87 mg/dL (70-110); POTASSIUM 3.8 mmol/L (3.5-5.1); SODIUM SERUM 139 mmol/L (136-145); UREA NITROGEN, BLOOD 16 mg/dL (7-18)
[2019-01-17 22:19] LABS: ALANINE AMINOTRANSFERASE 29 U/L (12-78); ALBUMIN 4.2 g/dL (3.4-5.0); ALKALINE PHOSPHATASE 72 U/L (46-116); ASPARTATE AMINOTRANSFERASE 20 U/L (15-37); BILIRUBIN,TOTAL 0.5 mg/dL (0.1-1.0); HCG,QUANTITATIVE < 1 mIU/mL (0-6); TOTAL PROTEIN, SERUM 8.1 g/dL (6.4-8.2)
[2019-01-17] MEDS ORDERED: OLANZapine 5 MG RAPDIS TABLET PO PRN (23:15)
[2019-01-17] MEDS ORDERED: ZOLPIDEM TARTRATE 10 MG TABLET PO PRN (23:15)
[2019-01-17] MEDS ORDERED: LORazepam 2 MG TABLET PO PRN (23:15)
[2019-01-18 02:58] VITALS: BP 102/60
[2019-01-18] MEDS ORDERED: INFLUENZA VIRUS VACCINE QVS 2019-20 (3YR+)/PF 60 MCG/0.5 ML SYRINGE IM ONE (03:45)
[2019-01-18] MEDS ORDERED: PNEUMOCOCCAL VACCINE POLYVALENT 0.5 ML VIAL [PPSV23] IM ONE (03:45)
[2019-01-18 08:13] VITALS: BP 105/69
[2019-01-18] MEDS ORDERED: GuaiFENesin/D-METHORPHAN [SUGAR-FREE] 200-20MG/10 ML SYRUP UDCUP PO PRN (14:30)
[2019-01-18] MEDS ORDERED: TUBERCULIN, PURIFIED PROTEIN DERIVATIVE 5 TU/0.1 ML SYRINGE ID ONE (14:30)
[2019-01-18] MEDS ORDERED: ACETAMINOPHEN 325 MG TABLET PO PRN (14:30)
[2019-01-18] MEDS ORDERED: MAG HYDROX/AL HYDROX/SIMETH ES 30 ML SUSPENSION UDCUP PO PRN (14:30)
[2019-01-18] MEDS ORDERED: MAGNESIUM HYDROXIDE SUSPENSION 30 ML UDCUP PO PRN (14:30)
[2019-01-18] MEDS ORDERED: HydrOXYzine PAMOATE 50 MG CAPSULE PO PRN (14:30)
[2019-01-18] MEDS ORDERED: PROMETHAZINE HCL 25 MG TABLET PO PRN (14:30)
[2019-01-18] MEDS ORDERED: LOPERAMIDE HCL 2 MG CAPSULE PO PRN (14:30)
[2019-01-18 16:10] VITALS: BP 106/56
[2019-01-18] MEDS: THIAMINE HCL 100 MG TABLET PO SCH (16:43)
[2019-01-18] MEDS ORDERED: OLANZapine 5 MG TABLET PO SCH (21:00)
[2019-01-19 06:17] VITALS: BP 115/69
[2019-01-19 08:16] VITALS: BP 101/69
[2019-01-19] MEDS: FLUoxetine HCL 20 MG CAPSULE PO SCH (08:52)
[2019-01-19] MEDS: FOLIC ACID 1 MG TABLET PO SCH (08:52)
[2019-01-19] MEDS: MULTIVITAMINS WITH MINERALS, THERAPEUTIC TABLET PO SCH (08:53)
[2019-01-19] MEDS: THIAMINE HCL 100 MG TABLET PO SCH ×2 (08:53→16:54)
[2019-01-19] MEDS: NALTREXONE HCL 50 MG TABLET PO SCH (08:53)
[2019-01-19 16:05] VITALS: BP 119/74
[2019-01-19] MEDS ORDERED: OLANZapine 10 MG TABLET PO SCH (21:00)
[2019-01-20 05:09] VITALS: BP 110/75
[2019-01-20 08:14] VITALS: BP 122/77
[2019-01-20] MEDS: FLUoxetine HCL 20 MG CAPSULE PO SCH (08:47)
[2019-01-20] MEDS: FOLIC ACID 1 MG TABLET PO SCH (08:47)
[2019-01-20] MEDS: THIAMINE HCL 100 MG TABLET PO SCH (08:47)
[2019-01-20] MEDS: MULTIVITAMINS WITH MINERALS, THERAPEUTIC TABLET PO SCH (08:47)
[2019-01-20] MEDS: NALTREXONE HCL 50 MG TABLET PO SCH (08:47)
[2019-01-20] MEDS ORDERED: FLUO-191 PO ×2 (15:15→16:10)
[2019-01-20] MEDS ORDERED: NALT50TA PO (15:15)
[2019-01-20] MEDS ORDERED: OLAN10TA20 PO (15:15)
[2019-01-20 16:06] VITALS: BP 120/81
[2019-01-20] MEDS ORDERED: NALT50TA6 PO (16:10)
[2019-01-20] MEDS ORDERED: OLAN10TA3 PO (16:10)
== END 2019-01-20 17:08 | disposition home or self-care (01) | DRG 750 ==
LOC: EMS 17:26 → B3A 23:17 → UNDOADMIN 23:58 → B3A 23:58 → B2S 23:59
PROVIDERS: ADMIT Psychiatry & Neurology Psychiatry; ATTEND Psychiatry & Neurology Psychiatry
DX: F25.0 Schizoaffective disorder, bipolar type (principal); R45.851 Suicidal ideations; Z91.19 Patient's noncompliance with other medical treatment and regimen; D64.9 Anemia, unspecified; E78.1 Pure hyperglyceridemia; F12.90 Cannabis use, unspecified, uncomplicated; F17.210 Nicotine dependence, cigarettes, uncomplicated; J45.909 Unspecified asthma, uncomplicated; Z59.9 Problem related to housing and economic circumstances, unspecified; Z82.49 Family history of ischemic heart disease and other diseases of the circulatory system; Z83.3 Family history of diabetes mellitus; Z90.49 Acquired absence of other specified parts of digestive tract; Z91.5 Personal history of self-harm; Z53.20 Procedure and treatment not carried out because of patient's decision for unspecified reasons
CPT/HCPCS: 96372; 99291; G0480; J1200; J1630; J2060

== ENCOUNTER 2024-02-23 11:15 | Inpatient (IN) | payer MEDICAID, SELFPAY ==
[~2024-02-23] VITALS: Ht 149.9 cm; Wt 48.1 kg
[~2024-02-23 11:15] MED LIST changes: -ARIP10TA8 PO; -DIVA250T45 PO; +FLUO-177 PO; +NALT50TA33 PO; +OLAN10 PO; +OLAN10TA74 PO; -THIA100T67 PO; -TRAZ-252 PO
[2024-02-23 13:24] LABS: COVID AG,FIA SOURCE NASAL SWAB
[2024-02-23 13:46] LABS: SARS-COV2 (COVID) ANTIGEN,FIA Negative (Negative)
[2024-02-23 15:32] LABS: PH,URINE DRUG SCREEN 6.5 (5.0-8.0)
[2024-02-23 15:38] LABS: ALCOHOL, URINE DRUG SCREEN NEGATIVE (NEGATIVE); AMPHET/METH SCREEN,URINE NEGATIVE (NEGATIVE); BARBITURATE SCREEN, URINE NEGATIVE (NEGATIVE); BENZODIAZEPINES SCREEN,URINE NEGATIVE (NEGATIVE); CANNABINOID SCREEN,URINE POSITIVE (NEGATIVE); COCAINE SCREEN,URINE NEGATIVE (NEGATIVE); METHADONE SCREEN, URINE NEGATIVE (NEGATIVE); OPIATE SCREEN,URINE NEGATIVE (NEGATIVE); PHENCYCLIDINE SCREEN,URINE NEGATIVE (NEGATIVE)
[2024-02-23] MEDS: HALOPERIDOL LACTATE 5 MG/ML VIAL IM ONE (16:24)
[2024-02-23] MEDS: LORazepam 2 MG/ML VIAL IM ONE (16:25)
[2024-02-23] MEDS: NICOTINE 14 MG/24 HOUR PATCH TD ONE (16:25)
[2024-02-23] MEDS: DiphenhydrAMINE HCL 50 MG/ML VIAL IM ONE (16:25)
[2024-02-23 17:15] LABS: BASOPHILS % (AUTO) 0.4 % (0.0-2.0); EOSINOPHILS % (AUTO) 0.6 % (1.0-6.0); HEMATOCRIT 31.5 % (36-46); HEMOGLOBIN 10.4 g/dL (12.0-16.0); LYMPHOCYTES # (AUTO) 1.3 K/uL (1.0-4.8); LYMPHOCYTES % (AUTO) 22.8 % (22.0-44.0); MEAN CORPUSCULAR HEMOGLOBIN 28.9 pg (26.0-34.0); MEAN CORPUSCULAR VOLUME 88 fL (80-100); MONOCYTES # (AUTO) 0.7 K/uL (0.1-1.0); MONOCYTES % (AUTO) 13.3 % (2.0-9.0); NEUTROPHILS # (AUTO) 3.5 K/uL (1.8-7.7); NEUTROPHILS % (AUTO) 62.9 % (40.0-70.0); PLATELET COUNT (AUTO) 318 K/uL (150-450); RED BLOOD CELL COUNT(AUTO) 3.59 MIL/uL (4.00-5.20); RED CELL DISTRIBUTION WIDTH 14.7 % (11.5-14.5); WHITE BLOOD COUNT (AUTO) 5.6 K/uL (4.5-11.0)
[2024-02-23 17:25] LABS: ANION GAP 3 mmol/L (8-16); CALCIUM, TOTAL 7.6 mg/dL (8.8-10.5); CARBON DIOXIDE 32 mmol/L (22-29); CHLORIDE 107 mmol/L (98-107); CREATININE 0.63 mg/dL (0.60-1.30); GLOMERULAR FILTR. RATE CALC > 60 mL/min (>60); GLUCOSE,RANDOM 95 mg/dL (70-110); SODIUM SERUM 142 mmol/L (136-145); UREA NITROGEN, BLOOD 7 mg/dL (7-18)
[2024-02-23 17:27] LABS: POTASSIUM 2.8 mmol/L (3.5-5.1)
[2024-02-23 17:33] LABS: ALCOHOL, BLOOD (SERUM) < 3 mg/dL (0-10)
[2024-02-23] MEDS: POTASSIUM CHLORIDE 20 MEQ ER TABLET PO ONE (18:30)
[2024-02-23] MEDS: POTASSIUM CHL 10 MEQ/WATER 50 ML IV SCH (18:41)
[2024-02-24 03:06] VITALS: O2SAT 97
[2024-02-24 05:02] VITALS: RESP 18
[2024-02-24 08:04] VITALS: BP 106/65; PULSE 97; RESP 16; TEMP 97.4; O2SAT 97
[2024-02-24] MEDS: LORazepam 2 MG TABLET PO PRN (08:36)
[2024-02-24] MEDS: HALOPERIDOL 5 MG TABLET PO PRN (08:36)
[2024-02-24] MEDS: POTASSIUM CHLORIDE 20 MEQ ER TABLET PO ONE (15:39)
[2024-02-24] MEDS: OLANZapine 10 MG TABLET PO SCH (20:20)
[2024-02-24 20:25] VITALS: BP 98/64; PULSE 70; RESP 18; TEMP 96.5; O2SAT 98
[2024-02-25] MEDS ORDERED: LORazepam 2 MG/ML VIAL ONE (03:41)
[2024-02-25] MEDS ORDERED: HALOPERIDOL LACTATE 5 MG/ML VIAL ONE (03:41)
[2024-02-25] MEDS: LORazepam 2 MG/ML VIAL IM ONE (03:47)
[2024-02-25] MEDS: HALOPERIDOL LACTATE 5 MG/ML VIAL IM ONE (03:48)
[2024-02-25] MEDS: DiphenhydrAMINE HCL 50 MG/ML VIAL IM ONE (03:48)
[2024-02-25 08:05] VITALS: BP 144/89; PULSE 91; RESP 16; TEMP 97.9; O2SAT 99
[2024-02-25] MEDS: NALTREXONE HCL 50 MG TABLET PO SCH (08:07)
[2024-02-25] MEDS: FLUoxetine HCL 20 MG CAPSULE PO SCH (08:07)
[2024-02-25] MEDS: NICOTINE 14 MG/24 HOUR PATCH TD SCH (08:19)
[2024-02-25 21:01] VITALS: BP 133/90; PULSE 95; RESP 18; TEMP 97; O2SAT 98
[2024-02-26] MEDS: ZOLPIDEM TARTRATE 10 MG TABLET PO PRN (02:27)
[2024-02-26 10:42] VITALS: BP 119/77; PULSE 100; RESP 16; TEMP 97.8; O2SAT 97
[2024-02-27 08:02] VITALS: BP 118/76; PULSE 74; RESP 16; TEMP 97.6; O2SAT 98
[2024-02-27] MEDS: FLUoxetine HCL 20 MG CAPSULE PO ONE (10:15)
[2024-02-27 20:18] VITALS: BP 130/90; PULSE 111; RESP 17; TEMP 97.9; O2SAT 96
[2024-02-28 08:10] VITALS: BP 126/91; PULSE 100; RESP 18; TEMP 97.9; O2SAT 100
[2024-02-28] MEDS: FLUoxetine HCL 20 MG CAPSULE PO SCH (08:17)
[2024-02-28] MEDS: INFLUENZA VIRUS VACCINE TVS (6MO+) 2024-25/PF 45 MCG/0.5 ML SYRINGE IM. ONE (20:10)
[2024-02-28 20:31] VITALS: RESP 17
[2024-02-29 08:20] VITALS: BP 130/88; PULSE 100; RESP 16; TEMP 97.9; O2SAT 98
[2024-02-29 20:15] VITALS: BP 122/81; PULSE 102; RESP 18; TEMP 98; O2SAT 99
[2024-03-01 09:29] VITALS: BP 140/85; PULSE 100; RESP 16; TEMP 97.5; O2SAT 97
[2024-03-01] MEDS ORDERED: FLUO-418 PO (16:25)
[2024-03-01] MEDS ORDERED: OLAN10TA74 PO (16:25)
[2024-03-01] MEDS ORDERED: FLUO20SO24 PO (16:43)
== END 2024-03-01 18:42 | disposition left against medical advice (07) | DRG 885 ==
LOC: EMS 11:15 → B3A 17:28
PROVIDERS: ADMIT Psychiatry & Neurology Child & Adolescent Psychiatry; ATTEND Psychiatry & Neurology Child & Adolescent Psychiatry
PROC: GZ56ZZZ Individual Psychotherapy, Supportive (ICD-10-PCS; principal; 2024-02-24)
PROC: GZ52ZZZ Individual Psychotherapy, Cognitive (ICD-10-PCS; 2024-02-24)
PROC: GZHZZZZ Group Psychotherapy (ICD-10-PCS; 2024-02-24)
DX: F25.0 Schizoaffective disorder, bipolar type (principal); Z20.822 Contact with and (suspected) exposure to COVID-19; Z53.29 Procedure and treatment not carried out because of patient's decision for other reasons; J45.909 Unspecified asthma, uncomplicated; E87.6 Hypokalemia; D64.9 Anemia, unspecified; F12.90 Cannabis use, unspecified, uncomplicated
CPT/HCPCS: 80048; 80307; 84132; 85025; 99291; G0480; J1200; J1630; J2060; J3480

== ENCOUNTER 2024-03-12 04:44 | Inpatient (IN) | payer MEDICAID ==
[~2024-03-12] VITALS: Ht 149.9 cm; Wt 48.3 kg
[2024-03-12 05:43] VITALS: BP 139/82; PULSE 84; RESP 18; TEMP 97.8; O2SAT 100
[2024-03-12 05:55] LABS: GLUCOMETER DEV NAME(LOC) POC.BV; POC SARS-COV2 AG, FIA NEGATIVE (NEGATIVE)
[2024-03-12] MEDS: LORazepam 2 MG TABLET PO PRN (06:15)
[2024-03-12] MEDS: HALOPERIDOL 5 MG TABLET PO PRN (06:15)
[2024-03-12] MEDS ORDERED: MAGNESIUM HYDROXIDE SUSPENSION 30 ML UDCUP PO PRN (07:30)
[2024-03-12] MEDS ORDERED: PETROLATUM,WHITE 28 GM JELLY TP PRN (07:30)
[2024-03-12] MEDS ORDERED: DOCUSATE SODIUM 100 MG CAPSULE PO PRN (07:30)
[2024-03-12] MEDS ORDERED: GuaiFENesin/D-METHORPHAN [SUGAR-FREE] 200-20MG/10 ML SYRUP UDCUP PO PRN (07:30)
[2024-03-12] MEDS ORDERED: MAG HYDROX/ALUMINUM HYD/SIMETH ES 30 ML SUSPENSION UDCUP PO PRN (07:30)
[2024-03-12] MEDS ORDERED: ONDANSETRON 4 MG TABLET PO PRN (07:30)
[2024-03-12] MEDS ORDERED: ALBUTEROL SULFATE HFA 90 MCG/PUFF 8 GM INHALER IH PRN (07:30)
[2024-03-12] MEDS ORDERED: CloNIDine HCL 0.1 MG TABLET PO PRN (07:30)
[2024-03-12] MEDS ORDERED: LOPERAMIDE HCL 2 MG CAPSULE PO PRN (07:30)
[2024-03-12] MEDS ORDERED: LORazepam 2 MG/ML VIAL ONE (07:52)
[2024-03-12] MEDS ORDERED: DiphenhydrAMINE HCL 50 MG/ML VIAL ONE (07:52)
[2024-03-12] MEDS ORDERED: HALOPERIDOL LACTATE 5 MG/ML VIAL ONE (07:52)
[2024-03-12 07:53] LABS: BASOPHILS % (AUTO) 0.4 % (0.0-2.0); EOSINOPHILS % (AUTO) 1.2 % (1.0-6.0); HEMATOCRIT 38.2 % (36-46); HEMOGLOBIN 12.4 g/dL (12.0-16.0); LYMPHOCYTES # (AUTO) 1.3 K/uL (1.0-4.8); LYMPHOCYTES % (AUTO) 15.3 % (22.0-44.0); MEAN CORPUSCULAR HEMOGLOBIN 28.8 pg (26.0-34.0); MEAN CORPUSCULAR HGB CONC 32.6 G/dL (31.0-37.0); MEAN CORPUSCULAR VOLUME 89 fL (80-100); MONOCYTES # (AUTO) 0.8 K/uL (0.1-1.0); NEUTROPHILS # (AUTO) 6.5 K/uL (1.8-7.7); NEUTROPHILS % (AUTO) 74.1 % (40.0-70.0); PLATELET COUNT (AUTO) 404 K/uL (150-450); RED BLOOD CELL COUNT(AUTO) 4.31 MIL/uL (4.00-5.20); RED CELL DISTRIBUTION WIDTH 15.1 % (11.5-14.5); WHITE BLOOD COUNT (AUTO) 8.8 K/uL (4.5-11.0)
[2024-03-12 08:06] LABS: HEMOGLOBIN A1C 5.5 % (3.8-5.6)
[2024-03-12] MEDS: DiphenhydrAMINE HCL 50 MG/ML VIAL IM ONE (08:08)
[2024-03-12] MEDS: LORazepam 2 MG/ML VIAL IM ONE (08:09)
[2024-03-12] MEDS: HALOPERIDOL LACTATE 5 MG/ML VIAL IM ONE (08:11)
[2024-03-12 08:25] LABS: ALANINE AMINOTRANSFERASE 34 U/L (12-78); ALBUMIN 3.4 g/dL (3.4-5.0); ALKALINE PHOSPHATASE 59 U/L (46-116); ANION GAP 6 mmol/L (8-16); ASPARTATE AMINOTRANSFERASE 27 U/L (15-37); BILIRUBIN,TOTAL 0.2 mg/dL (0.1-1.0); CALCIUM, TOTAL 8.5 mg/dL (8.8-10.5); CARBON DIOXIDE 30 mmol/L (22-29); CHLORIDE 101 mmol/L (98-107); CHOL/HDL RATIO 2.2 (3.9-5.7); CHOLESTEROL 93 mg/dL (131-200); CREATININE 0.68 mg/dL (0.60-1.30); FREE T4 (FREE THYROXINE) 1.11 ng/dL (0.76-1.46); GLOMERULAR FILTR. RATE CALC > 60 mL/min (>60); GLUCOSE,RANDOM 89 mg/dL (70-110); HCG,QUANTITATIVE < 1 mIU/mL (0-6); HDL CHOLESTEROL 42 mg/dL (40-60); LDL CHOL (CALC.) 42 mg/dL (0-130); POTASSIUM 3.3 mmol/L (3.5-5.1); SODIUM SERUM 137 mmol/L (136-145); T4 (THYROXINE) 9.4 mcg/dL (4.7-13.3); THYROID STIMULATING HORMONE 0.42 uIU/mL (0.36-3.74); TOTAL PROTEIN, SERUM 7.8 g/dL (6.4-8.2); TRIGLYCERIDES 46 mg/dL (15-150); UREA NITROGEN, BLOOD 7 mg/dL (7-18)
[2024-03-12 08:35] VITALS: BP 148/92; PULSE 99; RESP 18; TEMP 98.2; O2SAT 98
[2024-03-12] MEDS ORDERED: PNEUMOCOCCAL VACCINE POLYVALENT 0.5 ML SYRINGE [PPSV23] IM. ONE (10:45)
[2024-03-12] MEDS: OLANZapine 10 MG TABLET PO SCH (14:40)
[2024-03-12] MEDS: FLUoxetine HCL 20 MG CAPSULE PO SCH (14:40)
[2024-03-12] MEDS: POTASSIUM CHLORIDE 20 MEQ ER TABLET PO ONE (18:53)
[2024-03-13 08:19] VITALS: BP 137/96; PULSE 100; RESP 16; TEMP 97
[2024-03-13 20:34] VITALS: BP 130/85; PULSE 105; RESP 18; TEMP 97.5; O2SAT 100
[2024-03-14 08:18] VITALS: BP 109/72; PULSE 94; RESP 16; TEMP 97.6; O2SAT 98
[2024-03-14 10:10] LABS: HEMOGLOBIN A1C 5.6 % (3.8-5.6)
[2024-03-14 10:17] LABS: CHOL/HDL RATIO 2.7 (3.9-5.7); POTASSIUM 3.7 mmol/L (3.5-5.1); THYROID STIMULATING HORMONE 0.73 uIU/mL (0.36-3.74)
[2024-03-14 20:14] VITALS: BP 102/62; PULSE 102; RESP 16; TEMP 98; O2SAT 97
[2024-03-14] MEDS: ZOLPIDEM TARTRATE 10 MG TABLET PO PRN (20:20)
[2024-03-15 14:00] VITALS: BP 139/92; PULSE 100; RESP 16; TEMP 98
[2024-03-15 20:00] VITALS: BP 128/81; PULSE 108; RESP 16; TEMP 97.7; O2SAT 98
[2024-03-16 01:04] VITALS: BP 129/87; PULSE 109; RESP 17; TEMP 98.6; O2SAT 98
[2024-03-16] MEDS: IBUPROFEN 400 MG TABLET PO PRN (01:10)
[2024-03-16 08:21] VITALS: BP 141/93; PULSE 110; RESP 16; TEMP 97; O2SAT 97
[2024-03-16 08:59] LABS: APPEARANCE,URINE CLEAR (CLEAR); BILIRUBIN,URINE NEGATIVE (NEGATIVE); COLOR,URINE COLORLESS (YELLOW); GLUCOSE, URINE (UA) NEGATIVE (NEGATIVE); KETONES,URINE NEGATIVE (NEGATIVE); LEUKOCYTE ESTERASE ,URINE NEGATIVE (NEGATIVE); NITRATE,URINE NEGATIVE (NEGATIVE); OCCULT BLOOD,URINE NEGATIVE (NEGATIVE); PH,URINE 7.5 (5.0-8.0); PH,URINE DRUG SCREEN 7.5 (5.0-8.0); PROTEIN,URINE NEGATIVE (NEGATIVE); SPECIFIC GRAVITIY, URINE 1.011 (1.003-1.030); UROBILINOGEN,URINE <=1.0 mg/dL (<=1.0)
[2024-03-16 09:05] LABS: AMPHET/METH SCREEN,URINE NEGATIVE (NEGATIVE); BARBITURATE SCREEN, URINE NEGATIVE (NEGATIVE); BENZODIAZEPINES SCREEN,URINE NEGATIVE (NEGATIVE); CANNABINOID SCREEN,URINE POSITIVE (NEGATIVE); COCAINE SCREEN,URINE NEGATIVE (NEGATIVE); METHADONE SCREEN, URINE NEGATIVE (NEGATIVE); OPIATE SCREEN,URINE NEGATIVE (NEGATIVE); PHENCYCLIDINE SCREEN,URINE NEGATIVE (NEGATIVE)
[2024-03-16 09:11] LABS: ALCOHOL, URINE DRUG SCREEN NEGATIVE (NEGATIVE)
[2024-03-16] MEDS: ACETAMINOPHEN 325 MG TABLET PO PRN (13:59)
[2024-03-16 14:00] VITALS: RESP 16
[2024-03-16 14:56] VITALS: RESP 16
[2024-03-16 20:53] VITALS: BP 134/84; PULSE 108; RESP 16; TEMP 97.6
[2024-03-17 08:57] VITALS: BP 137/87; PULSE 105; RESP 16; TEMP 96.9; O2SAT 98
[2024-03-17 19:55] VITALS: BP 139/95; PULSE 101; RESP 18; TEMP 97.6
[2024-03-17 20:00] VITALS: BP 139/95; PULSE 101; RESP 18; TEMP 97.6
[2024-03-18 07:43] VITALS: BP 136/89; PULSE 110; RESP 18; TEMP 97.3; O2SAT 98
[2024-03-18] MEDS: AMOX TR/POT CLAV 875 MG/125 MG TABLET PO SCH (09:17)
[2024-03-18 10:55] VITALS: BP 136/89; PULSE 110; RESP 18; TEMP 97.3; O2SAT 98
[2024-03-18] MEDS: NICOTINE 14 MG/24 HOUR PATCH TD PRN (11:24)
[2024-03-18 20:50] VITALS: BP 118/71; PULSE 104; RESP 18; TEMP 97.1; O2SAT 98
[2024-03-19 05:27] VITALS: RESP 20
[2024-03-19 06:30] VITALS: RESP 18
[2024-03-19 08:09] VITALS: BP 154/84; PULSE 104; RESP 16; TEMP 97.6; O2SAT 96
[2024-03-19 20:23] VITALS: BP 130/84; PULSE 108; RESP 15; TEMP 97.6; O2SAT 98
[2024-03-20 08:10] VITALS: BP 136/87; PULSE 110; RESP 16; TEMP 96.8; O2SAT 98
[2024-03-20 21:08] VITALS: BP 130/80; PULSE 98; RESP 17; TEMP 97.5
[2024-03-21 08:04] VITALS: BP 125/79; RESP 16; TEMP 97.8; O2SAT 98
[2024-03-21 16:00] VITALS: RESP 17
[2024-03-21 20:05] VITALS: BP 107/60; PULSE 100; RESP 17; TEMP 97
[2024-03-22 08:30] VITALS: BP 136/81; PULSE 98; RESP 18; TEMP 97.6; O2SAT 98
[2024-03-22 20:24] VITALS: BP 133/86; PULSE 120; RESP 17; TEMP 98; O2SAT 99
[2024-03-22 23:39] VITALS: BP 114/79; PULSE 98; RESP 18; TEMP 97.2; O2SAT 97
[2024-03-23 08:23] VITALS: BP 116/73; PULSE 100; RESP 16; TEMP 97.9; O2SAT 97
[2024-03-23] MEDS ORDERED: OLAN10TA74 PO (13:30)
[2024-03-23] MEDS ORDERED: FLUO20SO24 PO (13:32)
[2024-03-23] MEDS ORDERED: AMOX-457 PO (13:56)
== END 2024-03-23 16:40 | disposition home or self-care (01) | DRG 750 ==
LOC: B3A 04:58
PROVIDERS: ADMIT Psychiatry & Neurology Child & Adolescent Psychiatry; ATTEND Psychiatry & Neurology Child & Adolescent Psychiatry
PROC: GZHZZZZ Group Psychotherapy (ICD-10-PCS; principal; 2024-03-14)
PROC: GZ52ZZZ Individual Psychotherapy, Cognitive (ICD-10-PCS; 2024-03-14)
DX: F25.1 Schizoaffective disorder, depressive type (principal); E87.6 Hypokalemia; I10 Essential (primary) hypertension; F12.10 Cannabis abuse, uncomplicated; J45.909 Unspecified asthma, uncomplicated; G47.00 Insomnia, unspecified; Z20.822 Contact with and (suspected) exposure to COVID-19
CPT/HCPCS: 80053; 80061; 80307; 81003; 83036; 84132; 84436; 84439; 84443; 84702; 85025; 86592; J1200; J1630; J2060

== ENCOUNTER 2024-03-17 14:06 | Emergency (ER) | payer MEDICAID ==
[~2024-03-17] VITALS: Ht 149.9 cm; Wt 50.0 kg
[2024-03-17 15:35] VITALS: BP 140/90; PULSE 88; RESP 15; TEMP 97.8; O2SAT 98
[2024-03-17] MEDS: AMOX TR/POT CLAV 875 MG/125 MG TABLET PO ONE (17:23)
== END 2024-03-17 19:23 | disposition home or self-care (01) ==
LOC: EMS 14:06
DX: S01.85XA Open bite of other part of head, initial encounter (principal); J45.909 Unspecified asthma, uncomplicated; I10 Essential (primary) hypertension; F12.90 Cannabis use, unspecified, uncomplicated; F20.9 Schizophrenia, unspecified; F31.9 Bipolar disorder, unspecified; Z90.49 Acquired absence of other specified parts of digestive tract; Y04.1XXA Assault by human bite, initial encounter; Y93.89 Activity, other specified; Y92.89 Other specified places as the place of occurrence of the external cause; Y99.8 Other external cause status
CPT/HCPCS: 99283

== ENCOUNTER 2024-03-22 19:45 | Emergency (ER) | payer MEDICAID ==
[~2024-03-22] VITALS: Ht 149.9 cm; Wt 117.0 kg
[2024-03-22 20:15] VITALS: TEMP 98.4
[2024-03-22 21:14] LABS: BASOPHILS % (AUTO) 0.8 % (0.0-2.0); EOSINOPHILS % (AUTO) 1.9 % (1.0-6.0); HEMOGLOBIN 10.5 g/dL (12.0-16.0); LYMPHOCYTES # (AUTO) 2.1 K/uL (1.0-4.8); LYMPHOCYTES % (AUTO) 22.4 % (22.0-44.0); MEAN CORPUSCULAR HEMOGLOBIN 28.7 pg (26.0-34.0); MEAN CORPUSCULAR HGB CONC 32.7 G/dL (31.0-37.0); MEAN CORPUSCULAR VOLUME 88 fL (80-100); MONOCYTES # (AUTO) 1.1 K/uL (0.1-1.0); MONOCYTES % (AUTO) 11.2 % (2.0-9.0); NEUTROPHILS # (AUTO) 6.1 K/uL (1.8-7.7); NEUTROPHILS % (AUTO) 63.7 % (40.0-70.0); PLATELET COUNT (AUTO) 406 K/uL (150-450); RED BLOOD CELL COUNT(AUTO) 3.65 MIL/uL (4.00-5.20); RED CELL DISTRIBUTION WIDTH 15.2 % (11.5-14.5); WHITE BLOOD COUNT (AUTO) 9.6 K/uL (4.5-11.0)
[2024-03-22 21:16] LABS: APPEARANCE,URINE CLEAR (CLEAR); BILIRUBIN,URINE NEGATIVE (NEGATIVE); COLOR,URINE LIGHT YELLOW (YELLOW); GLUCOSE, URINE (UA) NEGATIVE (NEGATIVE); KETONES,URINE NEGATIVE (NEGATIVE); LEUKOCYTE ESTERASE ,URINE NEGATIVE (NEGATIVE); NITRATE,URINE NEGATIVE (NEGATIVE); OCCULT BLOOD,URINE NEGATIVE (NEGATIVE); PROTEIN,URINE NEGATIVE (NEGATIVE); SPECIFIC GRAVITIY, URINE 1.012 (1.003-1.030); UROBILINOGEN,URINE <=1.0 mg/dL (<=1.0)
[2024-03-22 21:23] LABS: ANION GAP 6 mmol/L (8-16); CALCIUM, TOTAL 8.4 mg/dL (8.8-10.5); CARBON DIOXIDE 27 mmol/L (22-29); CHLORIDE 102 mmol/L (98-107); CREATININE 0.68 mg/dL (0.60-1.30); GLOMERULAR FILTR. RATE CALC > 60 mL/min (>60); GLUCOSE,RANDOM 108 mg/dL (70-110); POTASSIUM 4.2 mmol/L (3.5-5.1); SODIUM SERUM 135 mmol/L (136-145); UREA NITROGEN, BLOOD 14 mg/dL (7-18)
[2024-03-22 21:34] LABS: ALANINE AMINOTRANSFERASE 324 U/L (12-78); ALBUMIN 2.9 g/dL (3.4-5.0); ALKALINE PHOSPHATASE 61 U/L (46-116); ASPARTATE AMINOTRANSFERASE 93 U/L (15-37); BILIRUBIN,TOTAL 0.1 mg/dL (0.1-1.0); HCG,QUANTITATIVE < 1 mIU/mL (0-6); LIPASE 246 U/L (16-77); TOTAL PROTEIN, SERUM 6.9 g/dL (6.4-8.2)
[2024-03-22 21:42] LABS: BILIRUBIN,DIRECT < 0.05 mg/dL (0.00-0.20)
[2024-03-22 23:00] VITALS: BP 115/80; PULSE 100; RESP 17; O2SAT 100
[2024-03-23] MEDS ORDERED: OLAN10TA74 PO (13:30)
[2024-03-23] MEDS ORDERED: FLUO20SO24 PO (13:32)
[2024-03-23] MEDS ORDERED: AMOX-457 PO (13:56)
== END 2024-03-22 23:04 ==
LOC: EMS 19:45
DX: R14.0 Abdominal distension (gaseous) (principal); J45.909 Unspecified asthma, uncomplicated; F20.9 Schizophrenia, unspecified; F31.9 Bipolar disorder, unspecified; F17.210 Nicotine dependence, cigarettes, uncomplicated; F12.90 Cannabis use, unspecified, uncomplicated; Z90.49 Acquired absence of other specified parts of digestive tract
CPT/HCPCS: 80048; 80076; 81003; 83690; 84702; 85025; 99283